=== PATIENT | female | born 1965 ===

== ENCOUNTER 2017-09-27 00:15 | Emergency (ER) | payer OTHER ==
[2017-09-27 00:20] VITALS: BP 120/74
--- NOTE | 2017-09-27 00:22 | ER Report ---
History and Physical Time Seen By MD: 00:20 HPI/ROS CHIEF COMPLAINT: Fall downstairs, scalp laceration HISTORY OF PRESENT ILLNESS: 52-year-old female presents ambulatory to the ER complaining of falling down the stairs. She does not recall the event. She woke up with a large laceration across her occipital area. She initially was a little confused per her . She denies neck pain. She denies headache or vomiting. She denies alcohol use. She thinks her last tetanus shots greater than 10 years. She denies any other injuries. Patient's complaining of back pain since she's been moving. She does not think it's related to the fall. REVIEW OF SYSTEMS: Respiratory: No cough, no dyspnea. Cardiovascular: No chest pain, no palpitations. Gastrointestinal: No vomiting, no abdominal pain. Musculoskeletal: Allergies: Coded Allergies: Sulfa (Sulfonamide Antibiotics) (Verified Allergy, Mild, RASH, 09/27/17) Home Meds Reported Medications Thyroid,Pork (ARMOUR THYROID) 15 Mg Tablet, 10 MG PO QAM 09/27/17 Reviewed Nurses Notes: Yes Old Medical Records Reviewed: Yes Constitutional Vital Sign - Last 24 Hours 09/27/17 09/27/17 09/27/17 09/27/17 00:20 00:30 00:45 01:00 Temp 98.0 Pulse 77 ??? 68 73 Resp 16 B/P (MAP) 120/74 Pulse Ox 93 92 93 95 09/27/17 09/27/17 09/27/17 01:05 01:20 01:40 Pulse 70 79 76 Pulse Ox 94 92 93 Physical Exam General Appearance: The patient is alert, has no immediate need for airway protection and no current signs of toxicity. Palpation of the head and neck reveal no tenderness or trauma except for a large transverse laceration at the margin of the occipital area on the top of the head. It appears to be approximately 9 cm long HEENT: Pupils equal and round no injection. TMs normal, oropharynx without dental trauma, facial bones intact on palpation Respiratory: Chest is non tender, lungs are clear to auscultation. No chest wall tenderness Cardiac: regular rate and rhythm Gastrointestinal: Abdomen is soft and non tender, no masses, bowel sounds normal. Musculoskeletal: Neck: Neck is supple and non tender. No tenderness in the midline Extremities have full range of motion and are non tender. No evidence of trauma Skin: No rashes or lesions. DIFFERENTIAL DIAGNOSIS: After history and physical exam differential diagnosis was considered for fall in the elderly including but not limited to intracranial injury, long bone and pelvic bone fracture, spinal injury, and intrathoracic injury. Medical Decision Making EKG/Imaging Imaging Results: CT scan of the head was obtained. The results of the study are CT Head without contrast and CT Cervical spine: Indication: Fall. Occipital scalp laceration. Comparison: None available Technique: CT head: Axial CT images were obtained through the brain from the skull base to the vertex without administration of IV contrast. Reformatted coronal and sagittal images were also obtained. Technique: CT cervical spine: Axial CT imaging of the cervical spine was performed. 2-D sagittal and coronal CT reformats were also obtained. One of the following dose optimization techniques was utilized in the performance of this exam: Automated exposure control; adjustment of the mA and/ or kV according to the patient's size; or use of an iterative reconstruction technique. Specific details can be referenced in the facility's radiology CT exam operational policy. FINDINGS: CT head: Right posterior parietal scalp contusion/laceration. No fracture. No evidence of mass, mass effect, or midline shift. No acute intracranial hemorrhage or acute territorial infarction. Globes and orbits are normal. The visualized paranasal sinuses and mastoid air spaces are clear. CT cervical spine: No acute abnormality of cervical vertebral body height and alignment. No cervical spine fracture. There is no prevertebral soft tissue thickening. Mild multilevel spondylosis. Remaining visualized cervical soft tissues are unremarkable. The airway is patent. The lung apices are clear. IMPRESSION: 1. Right posterior parietal scalp contusion/hematoma with no fracture or acute intracranial abnormality. 2. No acute osseous or acute alignment abnormality of the cervical spine. The study was read by the radiologist. I viewed the images myself on the PACS system. ED Course/Re-evaluation ED Course Patient was admitted to an examination room. H&P was done. The differential diagnoses was considered. On clinical examination. Patient is alert and oriented, has a nonfocal examination. Her reports that she some was confused and apparently unconscious when he found her at the bottom of the stairs. She voices no neck pain complaints. She voices no trunk or extremity complaints. Patient is sent for CT scans of the head and cervical spine. Upon returning from CT scan and her studies are noted to be unremarkable. She is notified of the results. Her 9.0 cm wound is infiltrated with Marcaine 0.5% with epinephrine. The wound was prepped and cleaned in usual manner. It was approximated with 8 chaparro. Wound care was discussed, head injury precautions were reviewed. Patient's advised to have her chaparro removed in 7 days by her primary care Michaela Rosenthal. Decision to Disposition Date: Sep 27, 2017 Decision to Disposition Time: 01:49 Depart Departure Latest Vital Signs Vital Signs Date Time Temp Pulse Resp B/P (MAP) Pulse Ox O2 Delivery O2 Flow Rate FiO2 09/27/17 01:40 76 93 09/27/17 00:20 98.0 16 120/74 Impression: Primary Impression: Fall down stairs Additional Impressions: Occipital scalp laceration Head injury Condition: Improved Disposition: HOME OR SELF-CARE Referrals: MICHAELA ROSENTHAL (PCP) Patient Instructions: Head Injury (ED), Laceration (ED) Additional Instructions: Have your chaparro removed in one week You may shampoo your hair is normal. Just be gentle around the chaparro Follow-up with your primary care in one week to have chaparro removed Problem Qualifiers Primary Impression: Fall down stairs Encounter type: initial encounter Qualified Codes: W10.8XXA - Fall (on) ( from) other stairs and steps, initial encounter Additional Impressions: Occipital scalp laceration Encounter type: initial encounter Qualified Codes: S01.01XA - Laceration without foreign body of scalp, initial encounter Head injury Encounter type: initial encounter Qualified Codes: S09.90XA - Unspecified injury of head, initial encounter ALLIE CROWDER DO Sep 27, 2017 00:22
[2017-09-27] MEDS ORDERED: THYR15TA6 PO (00:28)
[2017-09-27] MEDS ORDERED: DIPHTH/TETANUS/ACEL. PERTUSSIS IM ONLY ONE (00:30)
--- NOTE | 2017-09-27 01:12 | RADIOLOGY IMAGING REPORT ---
FACILITY: [facility] PATIENT NAME: Neisha Yan : 1965 MR: [id number] V: [id number] EXAM DATE: ORDERING PHYSICIAN: ALLIE CROWDER TECHNOLOGIST: Location: [facility] Patient: Neisha Yan : 1965 Visit/Account:[id number] Date of Sevice: 09/27/2017 CT Head without contrast and CT Cervical spine: Indication: Fall. Occipital scalp laceration. Comparison: None available Technique: CT head: Axial CT images were obtained through the brain from the skull base to the verte x without administration of IV contrast. Reformatted coronal and sagittal images were also obtained. Technique: CT cervical spine: Axial CT imaging of the cervical spine was performed. 2-D sagittal and coronal CT reformats were also obtained. One of the following dose optimization techniques was utilized in the performance of this exam: Autom ated exposure control; adjustment of the mA and/or kV according to the patient's size; or use of an i terative reconstruction technique. Specific details can be referenced in the facility's radiology C T exam operational policy. FINDINGS: CT head: Right posterior parietal scalp contusion/laceration. No fracture. No evidence of mass, mass effect, or midline shift. No acute intracranial hemorrhage or acute territorial infarction. Globes and orbits are normal. The visualized paranasal sinuses and mastoid air spaces are clear. CT cervical spine: No acute abnormality of cervical vertebral body height and alignment. No cervical spine fracture. T here is no prevertebral soft tissue thickening. Mild multilevel spondylosis. Remaining visualized cervical soft tissues are unremarkable. The airway is patent. The lung apices are clear. IMPRESSION: 1. Right posterior parietal scalp contusion/hematoma with no fracture or acute intracranial abnormal ity. 2. No acute osseous or acute alignment abnormality of the cervical spine. Report Dictated By: Gideon Epperson MD at 09/27/2017 1:01 AM Report E-Signed By: Gideon Epperson MD at 09/27/2017 1:07 AM WSN:[id number]
--- NOTE | 2017-09-27 01:13 | RADIOLOGY IMAGING REPORT ---
FACILITY: [facility] PATIENT NAME: Neisha Yan : 1965 MR: [id number] V: [id number] EXAM DATE: ORDERING PHYSICIAN: ALLIE CROWDER TECHNOLOGIST: Location: [facility] Patient: Neisha Yan : 1965 Visit/Account:[id number] Date of Sevice: 09/27/2017 CT Head without contrast and CT Cervical spine: Indication: Fall. Occipital scalp laceration. Comparison: None available Technique: CT head: Axial CT images were obtained through the brain from the skull base to the verte x without administration of IV contrast. Reformatted coronal and sagittal images were also obtained. Technique: CT cervical spine: Axial CT imaging of the cervical spine was performed. 2-D sagittal and coronal CT reformats were also obtained. One of the following dose optimization techniques was utilized in the performance of this exam: Autom ated exposure control; adjustment of the mA and/or kV according to the patient's size; or use of an i terative reconstruction technique. Specific details can be referenced in the facility's radiology C T exam operational policy. FINDINGS: CT head: Right posterior parietal scalp contusion/laceration. No fracture. No evidence of mass, mass effect, or midline shift. No acute intracranial hemorrhage or acute territorial infarction. Globes and orbits are normal. The visualized paranasal sinuses and mastoid air spaces are clear. CT cervical spine: No acute abnormality of cervical vertebral body height and alignment. No cervical spine fracture. T here is no prevertebral soft tissue thickening. Mild multilevel spondylosis. Remaining visualized cervical soft tissues are unremarkable. The airway is patent. The lung apices are clear. IMPRESSION: 1. Right posterior parietal scalp contusion/hematoma with no fracture or acute intracranial abnormal ity. 2. No acute osseous or acute alignment abnormality of the cervical spine. Report Dictated By: Gideon Epperson MD at 09/27/2017 1:01 AM Report E-Signed By: Gideon Epperson MD at 09/27/2017 1:07 AM WSN:[id number]
== END 2017-09-27 01:51 | disposition home or self-care (01) ==
LOC: ER 01:08
DX: S01.01XA Laceration without foreign body of scalp, initial encounter (principal); S09.90XA Unspecified injury of head, initial encounter
CPT/HCPCS: 70450; 72125; 90471; 90715; 99283

== ENCOUNTER → 2018-06-23 | Outpatient (CLI) | payer BC, OTHER ==
[~2018-06-23] MED LIST: THYR15TA6 PO
--- NOTE | 2018-06-24 09:52 | RADIOLOGY IMAGING REPORT ---
FACILITY: [facility] [place] PATIENT NAME: TORI LEWIS : [id number] MR: [id number] V: [id number] EXAM DATE: ORDERING PHYSICIAN: MICHAELA ROSENTHAL TECHNOLOGIST: Carine Rivera PROCEDURE:BILATERAL DIGITAL SCREENING MAMMOGRAM WITH CAD ASSISTED INTERPRETATION & 3D TOMOSYNTHESIS COMPARISON:Prior mammograms 04/23/17, 04/08/16, 02/04/15, 02/01/14, 06/16/13. INDICATIONS:SCREENING FINDINGS: There are scattered areas of fibroglandular density throughout both breasts. The parenchymal pattern has remained stable allowing for difference in mammographic technique & patient positioning. There is no evidence of malignant appearing mass, malignant appearing calcifications or other secondary sign of malignancy in either breast. DIAGNOSTIC CATEGORY 1--NEGATIVE. RECOMMENDATIONS: ROUTINE MAMMOGRAM AND CLINICAL EVALUATION. IMPRESSION: BIRADS 1: Negative. No significant abnormality is seen. Dictated by: Yasmin Nuñez M.D. on 06/23/2018 at 16:28 Transcribed by: BOSTON on 06/24/2018 at 8:49 Approved by: Yasmin Nuñez M.D. on 06/24/2018 at 9:51 [facility]
== END ==
LOC: MAMO 01:24
PROVIDERS: ATTEND Nurse Practitioner Psychiatric/Mental Health
DX: Z12.31 Encounter for screening mammogram for malignant neoplasm of breast (principal)
CPT/HCPCS: 77063; 77067